=== PATIENT | female | born 1935 | race Caucasian/White ===

== ENCOUNTER 2019-08-24 09:40 | Emergency (ER) | payer OTHER, MEDICARE ==
[2019-08-24] MEDS ORDERED: ACETAMINOPHEN 325 MG TABLET (FP) PO ONE (09:56)
[2019-08-24] MEDS ORDERED: ACETAMINOPHEN 325 MG TABLET (FP) ONE (09:57)
[2019-08-24 10:05] VITALS: PULSE 72; TEMP 99.1; BMI 23.7
--- NOTE | 2019-08-24 10:43 | PDOC ---
History of Present Illness - General Chief Complaint: Injury Stated Complaint: RIGHT WRIST INJURY Time Seen by Provider: 08/24/19 09:49 History Source: Patient Exam Limitations: No Limitations - History of Present Illness Initial Comments: 08/24/19 10:38 CHIEF COMPLAINT: Fall on right hand yesterday while moving a patio chair. Now complains of wrist swelling and pain HISTORY OF PRESENT ILLNESS: 83-year-old female with history of hypertension was moving a patio chair yesterday. She slipped on the wet patio and fell onto her outstretched right hand. She had some wrist pain, but the swelling did not occur until much later in the day. She denies any other injuries. She did not hit her head or twist her neck, did not injure her chest, back, or lower extremities. Her only complaint is related to the right wrist. She has increased pain with making a fist or with using the right arm. REVIEW OF SYSTEMS: No fever chills No syncope No chest pain, no shortness of breath No blurry vision, no back pain Positive mechanical fall with right wrist injury No head, neck, back, or lower extremity injuries No headache, no dizziness, no change in vision 08/24/19 10:41 Patient states she did not yet take her blood pressure medication this morning as she knew she was coming to the hospital. Given her elevated blood pressure, she was given her usual dose of 50 mg of Toprol-XL in the ED. Past History - Medical History Allergies/Adverse Reactions: Allergies Allergy/AdvReac Type Severity Reaction Status Date / Time Penicillins Allergy Unknown Verified 08/24/19 09:49 strawberry Allergy Unknown Verified 08/24/19 09:49 Home Medications: Ambulatory Orders Metoprolol Succinate [Toprol Xl] 50 mg PO BID 08/24/19 Asthma: No COPD: No Diabetes: No HTN: Yes - Psycho-Social/Smoking History Smoking History: Never smoked Have you smoked in the past 12 months: No Information on smoking cessation initiated: No - Substance Abuse Hx (Audit-C & DAST Scrn) How often the patient has a drink containing alcohol: Never Score: In Men: 4 or > Positive; In Women: 3 or > Positive: 0 Screen Result (Pos requires Nsg. Audit-10AR): Negative In the last yr the pt used illegal drug/Rx for NonMed reason: No Score: Yes response is considered Positive: 0 Screen Result (Positive result requires Nsg. DAST-10): Negative *Physical Exam - Vital Signs Last Vital Signs Temp Pulse Resp BP Pulse Ox 99.1 F 72 16 183/104 H 98 08/24/19 09:49 08/24/19 09:49 08/24/19 09:49 08/24/19 09:49 08/24/19 09:49 - Physical Exam 08/24/19 10:41 GENERAL: The patient is awake, alert, and fully oriented, in no acute distress. HEAD: Normal with no signs of trauma. EYES: Pupils equal, round and reactive to light, extraocular movements intact, sclera anicteric, conjunctiva clear. ENT: Ears normal, nares patent, oropharynx clear without exudates. Moist mucous membranes. NECK: Normal range of motion, supple without lymphadenopathy, JVD, or masses. LUNGS: Breath sounds equal, clear to auscultation bilaterally. No wheezes, and no crackles. No rib tenderness. HEART: Regular rate and rhythm, normal S1 and S2 without murmur, rub or gallop. ABDOMEN: Soft, nontender, normoactive bowel sounds. No guarding, no rebound. No masses. EXTREMITIES: Right shoulder, upper arm, and elbow are normal. The distal right forearm is swollen with tenderness over the distal radius and ulna. There is swelling, but no obvious deformity. The hand and fingers are normal. Capillary refill in the fingers is less than 1 second. Radial pulses normal. Sensation is intact in all fingers. Skin is intact. NEUROLOGICAL: Cranial nerves II through XII grossly intact. Normal speech, normal gait. PSYCH: Normal mood, normal affect. SKIN: Warm, Dry, normal turgor, no rashes or lesions noted. Procedures - Splinting Splint Location: Right: Wrist (Cast padding, volar splint, Paul bandage, and sling applied) Pre-Proc Neuro Vasc Exam: normal Pre-Made Type: metal Splint Type: Yes: Volar Post-Proc Neuro Vasc Exam: normal Paul Bandage: yes, 2", 3" Sling: Yes ED Treatment Course - RADIOLOGY Radiology Studies Ordered: Category Date Time Status WRIST- RIGHT [RAD] Stat Radiology 08/24/19 09:56 Taken - Medications Given in the ED: ED Medications Discontinued Medications Generic Name Dose Route Start Last Admin Trade Name Freq PRN Reason Stop Dose Admin Acetaminophen 650 mg 08/24/19 09:56 08/24/19 10:02 Tylenol - PO 08/24/19 09:57 650 mg ONCE ONE Administration Metoprolol Succinate 100 mg 08/24/19 09:56 08/24/19 10:15 Toprol Xl - PO 08/24/19 09:57 Not Given ONCE ONE Metoprolol Succinate 50 mg 08/24/19 10:00 08/24/19 10:02 Toprol Xl - PO 08/24/19 10:01 50 mg ONCE ONE Administration Medical Decision Making - Medical Decision Making 08/24/19 10:43 83-year-old female with history of hypertension, presents after a mechanical fall with injury to the right wrist. On examination there is localized swelling and tenderness over the right wrist, both radius and ulna. There is increased pain with range of motion. Skin, neuro, vascular, all intact. 3 views of the right wrist were ordered. There is a distal radius fracture visualized only on the lateral view. The fracture is not significantly displaced. Ulna appears grossly intact. Impression: Right wrist fracture Plan: Right wrist splint Sling Tylenol, 650 mg every 4 hours as needed for pain Ice pack applied Refer to orthopedics, Dr. Garrido for follow-up on Monday08/24/19 10:56 Patient was given her usual home dose of Toprol XL 5o mg after arrival to the ED because she did not take her morning dose at home. She has no symptoms whatsoever related to hypertension. Repeat blood pressure will be checked prior to discharge. Discharge - Discharge Information Problems reviewed: Yes Clinical Impression/Diagnosis: Fracture of right distal radius Qualifiers: Encounter type: initial encounter Fracture type: closed Fracture morphology: unspecified fracture morphology Qualified Code(s): S52.501A - Unspecified fracture of the lower end of right radius, initial encounter for closed fracture Condition: Stable Disposition: HOME - Admission No - Follow up/Referral Referrals: Sherman Garrido MD [Staff Physician] - 2 Days - Patient Discharge Instructions Patient Printed Discharge Instructions: How to Use a Sling, DI for Wrist Fracture Additional Instructions: Today you were evaluated for a right wrist injury. The x-ray shows a fracture of the distal radius. A splint has been placed on the wrist. Keep the splint clean and dry. Do not remove it until you see the orthopedist in a couple of days. Use the sling to elevate the wrist when up and about. You may remove this at night. Take Tylenol 650 mg every 4 hours as needed for pain. If the Tylenol is not sufficiently controlling the pain, you may take ibuprofen 600 mg up to 3 times per day. Apply an ice pack to the outside of the wrist bandage for 30 minutes every couple of hours to help relieve the pain and swelling. Follow-up with Dr. Sherman Garrido. Call Monday after 9 AM to schedule your appointment time. Advise him that you had x-rays in the emergency room. If you have any serious problems in the meantime, you may return to the emergency department if needed. - Post Discharge Activity
[2019-08-24 11:09] VITALS: BP 175/90
== END 2019-08-24 11:05 | disposition home or self-care (01) ==
LOC: FER 09:40
DX: S52.501A Unspecified fracture of the lower end of right radius, initial encounter for closed fracture (principal); W19.XXXA Unspecified fall, initial encounter
CPT/HCPCS: 73110-TC-RT-FY; 99283-25